=== PATIENT | male | born 1960 | race Caucasian/White ===

== ENCOUNTER 2022-08-13 09:31 | Outpatient (CLI) | payer BC ==
[~2022-08-13] VITALS: Ht 172.7 cm; Wt 88.5 kg
[~2022-08-13 09:31] MED LIST: ASPI-586 PO; CHLO4TAB PO; RED600TA PO
[2022-08-14] MEDS ORDERED: TURM1TAB PO (10:25)
== END 2022-08-14 10:31 ==
LOC: PREOP 09:31
PROVIDERS: ATTEND Surgery
DX: Z01.818 Encounter for other preprocedural examination (principal); Z86.010 Personal history of colon polyps

== ENCOUNTER 2022-08-20 08:00 | Day surgery (SDC) | payer BC, OTHER ==
[~2022-08-20] VITALS: Ht 172.7 cm; Wt 88.5 kg
[~2022-08-20 08:00] MED LIST changes: +TURM1TAB PO
[2022-08-20] MEDS ORDERED: LACTATED RINGERS 1,000 ML IV STA (08:10)
--- NOTE | 2022-08-20 08:14 | Progress Note-Pre Operative ---
Pre-Operative Progress Note Date of Available H&P: Jul 29, 2022 Date H&P Reviewed: Aug 20, 2022 Time H&P Reviewed: 08:13 History & Physical: H&P Reviewed, Patient Examed, No changes noted Pre-Operative Diagnosis: hx polyps SONIA RAMIREZ DO Aug 20, 2022 08:14
[2022-08-20 08:20] VITALS: BP 147/94
[2022-08-20] MEDS ORDERED: PROPOFOL INJECTION 50 ML IV ONE (09:06)
[2022-08-20 09:35] VITALS: BP 93/55
--- NOTE | 2022-08-20 09:36 | Discharge Inst-Simple/Standard ---
Discharge Inst-Standard Patient Instructions/Follow Up Plan of Care/Instructions/FU: 2 weeks Rufina Activity as Tolerated: Yes Discharge Diet: Regular Diet (high fiber) SONIA RAMIREZ DO Aug 20, 2022 09:36
[2022-08-20 09:40] VITALS: BP 91/54
[2022-08-20 09:43] VITALS: BP 110/72
[2022-08-20 10:10] VITALS: BP 110/72
--- NOTE | 2022-08-20 16:55 | OPERATIVE REPORT ---
DATE OF SERVICE: 08/20/2022 PREOPERATIVE DIAGNOSIS: History of colon polyps. POSTOPERATIVE DIAGNOSIS: Colon polyp, diverticulosis. PROCEDURE: Colonoscopy with hot biopsy polypectomy x1. SURGEON: Sonia Almaraz DO. ANESTHESIA: Per [employer]LE[employer] CLERK. ESTIMATED BLOOD LOSS: None. COMPLICATIONS: None. INDICATIONS: The patient is a 62-year-old male with history of polyps. He understands risks and benefits of procedure and wished to proceed. Consent was signed in chart. DESCRIPTION OF PROCEDURE: The patient was taken to endoscopy suite, placed in left lateral recumbent position. Timeout was performed. Digital rectal exam was performed. No palpable polyps, masses or ulcerations. Scope was inserted into the rectum and advanced all the way to the cecum with minimal difficulty. Prep was adequate. Scope was slowly retracted back. No polyps, masses or ulcerations within the cecum, ascending, transverse, and descending colon. In sigmoid colon, a small polyp was present, which hot biopsy polypectomy was performed. Very minimal amount of diverticulosis present. Scope was retracted back in the rectum without any other pathology. The scope was retroflexed. There was no other pathology. Scope was returned to its normal position, slowly withdrawn until completely removed. The patient tolerated the procedure well without complications, taken to recovery in stable condition. RECOMMENDATIONS: The patient will follow up in the office in 2 weeks. Discussed pathology results. Would recommend high fiber diet due to diverticulosis. Repeat colonoscopy in 5 years. Any issues before that be seen at that time. Job ID: [id number] DocumentID: [id number] Dictated Date: 08/20/2022 09:38:19 Boat [employer]orer Date: 08/20/2022 16:52:00 Dictated By: SONIA ALMARAZ DO
--- NOTE | 2022-08-27 14:48 | Anesthesia-General Post-Op ---
MAC Significant Intra-Op Events Notes 08/20/22 @ 1000 Patient Condition Mental Status/LOC: Same as Preop Cardiovascular: Satisfactory Nausea/Vomiting: Absent Respiratory: Satisfactory Pain: Controlled Complications: Absent Post Op Complications Complications None Follow Up Care/Instructions Patient Instructions None needed. Anesthesiology Discharge Order Discharge Order Patient is doing well, no complaints, stable vital signs, no apparent adverse anesthesia problems. No complications reported per nursing. MARY ROSADO CRNA Aug 27, 2022 14:48
== END 2022-08-20 10:20 | disposition home or self-care (01) ==
LOC: ENDO 08:00
PROVIDERS: ATTEND Surgery
DX: Z12.11 Encounter for screening for malignant neoplasm of colon (principal); K63.5 Polyp of colon; K57.30 Diverticulosis of large intestine without perforation or abscess without bleeding; Z87.891 Personal history of nicotine dependence; Z28.310 Unvaccinated for COVID-19